=== PATIENT | female | born 1975 | race Caucasian/White ===

== ENCOUNTER 2021-09-29 08:40 | Day surgery (SDC) | payer OTHER ==
[~2021-09-29 08:40] MED LIST: SODIUM CHLORIDE 0.9% 1,000 ML IV ONE
[2021-09-29] MEDS ORDERED: SODIUM CHLORIDE 0.9% 1,000 ML IV ONE (09:00)
[2021-09-29 09:12] LABS: COVID AG,FIA SOURCE NASAL SWAB
[2021-09-29] MEDS ORDERED: SODIUM CHLORIDE 0.9% 1,000 ML ONE (09:31)
[2021-09-29] MEDS ORDERED: CALC-789 PO (09:48)
[2021-09-29] MEDS ORDERED: ATOR20TA65 PO (09:48)
[2021-09-29] MEDS ORDERED: DOCU100C33 PO (09:48)
[2021-09-29] MEDS ORDERED: PYRI50CA PO (09:48)
[2021-09-29] MEDS ORDERED: BUPR450T3 PO (09:48)
[2021-09-29] MEDS ORDERED: PANT-31 PO (09:48)
[2021-09-29] MEDS ORDERED: BUPR-113 PO (11:39)
[2021-09-29] MEDS ORDERED: PROPOFOL 1% 20 ML VIAL IVP ONE (12:00)
== END 2021-09-29 12:05 | disposition home or self-care (01) ==
LOC: SURGERY 08:40
PROVIDERS: ATTEND Surgery
DX: K26.5 Chronic or unspecified duodenal ulcer with perforation (principal); E78.5 Hyperlipidemia, unspecified; F32.9 Major depressive disorder, single episode, unspecified; Z79.899 Other long term (current) drug therapy; Z98.890 Other specified postprocedural states
CPT/HCPCS: 43239; 87426; C1769; C9803; J2704; J7030; 88305; 88312; 88313